=== PATIENT | female | born 1995 | race Two or more races ===

== ENCOUNTER 2017-06-03 20:35 | Inpatient (IN) | payer MEDICAID ==
[2017-06-03 21:57] LABS: ADD MAN DIFF? NO
[2017-06-03 21:59] LABS: WHITE BLOOD COUNT 10.3 10^3/ul (4.8-10.8)
[2017-06-03 21:59] LABS: BASOPHILS % 0.2 % (0.0-2.0); EOSINOPHILS # 0.1 10^3/ul (0.0-0.5); EOSINOPHILS % 1.1 % (0.0-7.0); HEMATOCRIT 37.6 % (37.0-47.0); HEMOGLOBIN 12.8 g/dl (12.0-16.0); LYMPHOCYTES # 1.6 10^3/ul (0.8-2.9); LYMPHOCYTES % 15.4 % (15.0-51.0); MEAN CORPUSCULAR HEMOGLOBIN 29.2 pg (29.0-33.0); MEAN CORPUSCULAR VOLUME 85.8 fl (82.0-101.0); MEAN PLATELET VOLUME 12.4 fl (7.4-10.4); MONOCYTE # 0.8 10^3/ul (0.3-0.9); MONOCYTES % 7.7 % (0.0-11.0); NEUTROPHIL # 7.8 10^3/ul (1.6-7.5); PLATELET COUNT 146 10^3/UL (140-415); RED BLOOD COUNT 4.38 10^6/ul (4.20-5.40); RED CELL DISTRIBUTION WIDTH 13.4 % (11.5-14.5)
[2017-06-03] MEDS ORDERED: BUTORPHANOL 2 MG INJ IV (22:00)
[2017-06-03] MEDS ORDERED: LIDOCAINE 1% (MPF) 30 ML INJ INJ (22:00)
[2017-06-03] MEDS ORDERED: OXYCODONE/ASPIRIN (4.88/325) TAB PO (22:00)
[2017-06-03] MEDS ORDERED: MISOPROSTOL 200 MCG TAB PR (22:00)
[2017-06-03] MEDS ORDERED: MINERAL OIL LIGHT 10 ML VIAL TOP (22:00)
[2017-06-03] MEDS ORDERED: OXYTOCIN 30 UNITS/LR 500 ML IV (22:00)
[2017-06-03] MEDS ORDERED: METHYLERGONOVINE 0.2 MG INJ IM (22:00)
[2017-06-03] MEDS ORDERED: CARBOPROST 250 MCG INJ IM (22:00)
[2017-06-03] MEDS: LACTATED RINGER'S 1,000 ML IV ×2 (22:11)
[2017-06-03 22:13] LABS: INR 0.86; PROTIME 11.8 Sec (11.9-14.9); PT RATIO 0.9
[2017-06-03 22:14] LABS: PARTIAL THROMBOPLASTIN TIME 24.4 Sec (25.0-35.0)
[2017-06-03 22:45] LABS: RUPTURE FETAL MEMBRANES NEGATIVE (NEGATIVE)
[2017-06-03 22:49] LABS: HEPATITIS B SURFACE ANTIGEN NEGATIVE (NEGATIVE)
[2017-06-03] MEDS ORDERED: NALOXONE (0.4 MG/ML) INJ IV (23:00)
[2017-06-03] MEDS ORDERED: DIPHENHYDRAMINE 50 MG INJ IV (23:00)
[2017-06-03] MEDS ORDERED: ONDANSETRON 4 MG INJ IV (23:00)
[2017-06-03] MEDS ORDERED: EPHEDrine SULFATE 50 MG/5 ML SYG IV (23:00)
[2017-06-03] MEDS ORDERED: FENTAnyl 2MCG/ML-ROPIV 0.2% 100 ML (23:06)
[2017-06-03] MEDS: AMPICILLIN 2 GM/NS (PMX) 100 ML IV (23:59)
[2017-06-04] MEDS: LACTATED RINGER'S 1,000 ML IV ×3 (01:12→16:14)
[2017-06-04] MEDS ORDERED: AMPICILLIN 1 GM/NS (PMX) 50 ML IV (04:00)
[2017-06-04] MEDS: OXYTOCIN 30 UNITS/LR 500 ML IV ×4 (10:21→23:51)
[2017-06-04] MEDS: FENTAnyl 2MCG/ML-ROPIV 0.2% 100 ML BAG EPI ×2 (10:52→18:46)
[2017-06-04 16:52] LABS: RAPID PLASMA REAGIN NONREACTIVE (NR)
[2017-06-04] MEDS ORDERED: LACTATED RINGER'S 1,000 ML IV* (19:12)
[2017-06-04] MEDS ORDERED: HYDROCODONE/APAP (5/325) TAB PO (19:30)
[2017-06-04] MEDS ORDERED: CARBOPROST 250 MCG INJ IM (19:30)
[2017-06-04] MEDS ORDERED: MAGNESIUM HYDROXIDE 30ML CUP PO (19:30)
[2017-06-04] MEDS ORDERED: SENNA/DOCUSATE NA (8.6MG/50MG) TAB PO (19:30)
[2017-06-04] MEDS ORDERED: OXYTOCIN 30 UNITS/LR 500 ML IV (19:30)
[2017-06-04] MEDS ORDERED: DIPHENHYDRAMINE 25 MG CAP PO (19:30)
[2017-06-04] MEDS ORDERED: ZOLPIDEM 5 MG TAB PO (19:30)
[2017-06-04] MEDS ORDERED: METHYLERGONOVINE 0.2 MG INJ IM (19:30)
[2017-06-04] MEDS ORDERED: ACETAMINOPHEN 325 MG TAB PO (19:30)
[2017-06-04] MEDS ORDERED: MISOPROSTOL 200 MCG TAB PR (19:30)
[2017-06-04] MEDS: BENZOCAINE 20% 56 ML SPRAY TOP (22:01)
[2017-06-04] MEDS: WITCH HAZEL/GLYCERIN PAD PR (22:01)
[2017-06-04] MEDS: LANOLIN 7 GM TUBE TOP (22:02)
[2017-06-04] MEDS: IBUPROFEN 600 MG TAB PO (22:04)
[2017-06-05] MEDS: IBUPROFEN 800 MG TAB PO ×4 (06:26→18:21)
[2017-06-05 07:30] LABS: ADD MAN DIFF? NO
[2017-06-05 07:43] LABS: BASOPHILS % 0.2 % (0.0-2.0); EOSINOPHILS # 0.1 10^3/ul (0.0-0.5); EOSINOPHILS % 0.4 % (0.0-7.0); HEMATOCRIT 23.1 % (37.0-47.0); LYMPHOCYTES # 2.2 10^3/ul (0.8-2.9); LYMPHOCYTES % 11.6 % (15.0-51.0); MEAN CORPUSCULAR HGB CONC 34.6 g/dl (32.0-37.0); MEAN CORPUSCULAR VOLUME 86.5 fl (82.0-101.0); MEAN PLATELET VOLUME 12.7 fl (7.4-10.4); MONOCYTE # 1.1 10^3/ul (0.3-0.9); MONOCYTES % 6.1 % (0.0-11.0); NEUTROPHIL # 15.1 10^3/ul (1.6-7.5); NEUTROPHILS % 81.1 % (39.0-77.0); PLATELET COUNT 120 10^3/UL (140-415); RED BLOOD COUNT 2.67 10^6/ul (4.20-5.40); RED CELL DISTRIBUTION WIDTH 13.8 % (11.5-14.5)
[2017-06-05 07:43] LABS: WHITE BLOOD COUNT 18.6 10^3/ul (4.8-10.8)
[2017-06-06] MEDS: IBUPROFEN 800 MG TAB PO ×4 (00:27→17:49)
[2017-06-06] MEDS: DIPHTH/TET/ACEL PERTUSS (ADULT) 0.5 ML VIAL IM* (09:00)
[2017-06-06] MEDS: MEASLES,MUMPS,RUBELLA VACCINE INJ SC* (09:04)
[2017-06-06] MEDS: VARICELLA VACCINE LIVE/PF 1,350 UNIT/0.5 ML ML SC* (09:04)
== END 2017-06-06 19:01 | disposition home or self-care (01) | DRG 775 ==
LOC: OBT 20:35 → L-D 20:39 → PP1 06-04 21:44 → OBT 21:09 → L-D 21:09
PROVIDERS: Obstetrics & Gynecology
PROC: 10E0XZZ Delivery of Products of Conception, External Approach (ICD-10-PCS; principal; 2017-06-03)
DX: O80 Encounter for full-term uncomplicated delivery (principal); Z37.0 Single live birth; Z3A.39 39 weeks gestation of pregnancy
CPT/HCPCS: 62319; 76815; 84112; 85025; 85610; 85730; 86592; 86900; 86901; 87340; 90715; 90716; 99464

== ENCOUNTER 2018-12-10 00:08 | Emergency (ER) | payer BC, OTHER, MEDICAID ==
[2018-12-10] MEDS: KETOROLAC 30 MG INJ IM (01:58)
[2018-12-10] MEDS: LIDOCAINE/MYLANTA 40 ML BTL PO (01:58)
[2018-12-10] MEDS: RANITIDINE 150 MG TAB PO (02:03)
== END 2018-12-10 02:25 | disposition home or self-care (01) ==
LOC: FTE 00:08
DX: R10.13 Epigastric pain (principal)
CPT/HCPCS: 81025; 96372; 99284-25